=== PATIENT | female | born 1975 | race Caucasian/White ===

== ENCOUNTER 2016-11-23 07:00 | Day surgery (SDC) | payer OTHER ==
[~2016-11-23 07:00] MED LIST: Lactated Ringers 1,000 ML IV SCH; Lidocaine 1%/Sod Bicarbonate in NS 8.4% 1 ML Syringe PRN; Sodium Chloride 0.9% 10 ML Syringe FLUSH PRN
--- NOTE | 2016-11-23 07:45 | PCM.PREANE ---
Preanesthetic Assessment - Anesthesia/Transfusion/Family Hx Anesthesia History: Prior Anesthesia Without Reaction Family History of Anesthesia Reaction: No Transfusion History: No Prior Transfusion(s) - Review of Systems General: No Symptoms Pulmonary: No Symptoms Cardiovascular: No Symptoms Gastrointestinal: No Symptoms Neurological: No Symptoms Other: Reports: Thyroid Problems, Sinus Problem (seasonal allergies) - Physical Assessment NPO Status Date: 11/22/16 NPO Status Time: 17:30 O2 Sat by Pulse Oximetry: 97 Respiratory Rate: 16 Vital Signs: Last Vital Signs Temp 98.6 F 11/23/16 07:05 Pulse 91 11/23/16 07:05 Resp 16 11/23/16 07:05 BP 119/81 11/23/16 07:05 Pulse Ox 97 11/23/16 07:05 Height: 5 ft 8 in Weight: 86.183 kg ASA Class: 2 Mental Status: Alert & Oriented x3 Airway Class: Mallampati = 1 Dentition: Reports: Normal Dentition Thyro-Mental Finger Breadths: 3 Mouth Opening Finger Breadths: 3 ROM/Head Extension: Full Lungs: Clear to Auscultation, Normal Respiratory Effort Cardiovascular: Regular Rate, Regular Rhythm - Allergies Allergies/Adverse Reactions: Allergies Allergy/AdvReac Type Severity Reaction Status Date / Time No Known Allergies Allergy Verified 11/22/16 16:02 - Blood Blood Available: No - Acknowledgements Anesthesia Type Planned: MAC Pt an Appropriate Candidate for the Planned Anesthesia: Yes Alternatives and Risks of Anesthesia Discussed w Pt/Guardian: Yes Pt/Guardian Understands and Agrees with Anesthesia Plan: Yes PreAnesthesia Questionnaire HEENT History: Reports: Impaired Vision Cardiovascular History: Reports: None, Other (See Below) (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1) Respiratory History: Reports: None Gastrointestinal History: Reports: Other (See Below) Other Gastrointestinal History: Sonny stones [employer] History: Reports: Neurological History: Reports: None Psychiatric History: Reports: Depression, Other (See Below) Other Psychiatric History: irritability Endocrine/Metabolic History: Reports: Hypothyroidism Hematologic History: Reports: None Immunologic History: Reports: None Oncologic (Cancer) History: Reports: None Dermatologic History: Reports: None - Past Surgical History Head Surgeries/Procedures: Reports: None Cardiovascular Surgical History: Reports: None Respiratory Surgical History: Reports: None GI Surgical History: Reports: Cholecystectomy, Colonoscopy Female Surgical History: Reports: Breast Implant, Tubal Ligation, Other (See Below) Other Female Surgeries/Procedures: Sling placement Endocrine Surgical History: Reports: None Neurological Surgical History: Reports: None Oncologic Surgical History: Reports: None Dermatological Surgical History: Reports: None - SUBSTANCE USE Smoking Status *Q: Never Smoker Tobacco Use Within Last Twelve Months: No Second Hand Smoke Exposure: No Days Per Week of Alcohol Use: 0 (very seldom) Recreational Drug Use History: No - HOME MEDS Home Medications: Home Meds Levothyroxine [Synthroid] 50 mcg PO ACBREAKFAST 12/25/15 [History] Aspirin [Children's Aspirin] 81 mg PO DAILY 11/22/16 [History] Calcium Carbonate [Calcium] 600 mg PO DAILY 11/22/16 [History] Desogestrel-Ethinyl Estradiol [Desogen 28 Day Tablet] 1 tab PO DAILY 11/22/16 [ History] Escitalopram Oxalate [Escitalopram Oxalate] 10 mg PO DAILY 11/22/16 [History] Lactobacillus Combo No.11 [Probiotic] 1 cap PO DAILY 11/22/16 [History] Loratadine [Alavert] 10 mg PO DAILY 11/22/16 [History] Multivitamin [Poly-Vitamin] 1 tab PO DAILY 11/22/16 [History] Niacin [Niacin ER] 1,500 mg PO DAILY 11/22/16 [History] - CURRENT (IN HOUSE) MEDS Current Meds: Current Medications Lactated Ringer's (Ringers, Lactated) 1,000 mls @ 125 mls/hr IV ASDIRECTED DEREK Stop: 11/23/16 23:00 Last Admin: 11/23/16 07:16 Dose: 125 mls/hr Lidocaine/Sodium Bicarbonate (Buffered Lidocaine 1% In Ns 8.4%) 0.25 ml .XX ONETIME PRN PRN Reason: Prior to IV Start Stop: 11/23/16 18:00 Last Admin: 11/23/16 07:16 Dose: 0.25 ml Sodium Chloride (Saline Flush) 10 ml FLUSH ASDIRECTED PRN PRN Reason: Keep Vein Open Stop: 11/23/16 18:00
[2016-11-23] MEDS ORDERED: Lidocaine 1% 4 ML ONE (07:55)
[2016-11-23] MEDS ORDERED: Propofol 200 MG/20 ML SDV ONE ×3 (07:55→10:38)
[2016-11-23] MEDS ORDERED: fentaNYL 100 MCG/2 ML SDV ONE (07:56)
[2016-11-23] MEDS ORDERED: Midazolam 1 MG/ML 2 ML SDV ONE ×2 (07:56→09:41)
[2016-11-23] MEDS ORDERED: Lidocaine 1% with EPINEPHrine 1:100,000 20 ML MDV ONE (07:56)
[2016-11-23] MEDS ORDERED: Bupivacaine 0.5%/EPINEPHrine 1:200,000 50 ML MDV ONE (07:56)
[2016-11-23] MEDS ORDERED: Lidocaine 1% 30 ML SDV INJECT ONE (08:58)
[2016-11-23] MEDS ORDERED: ceFAZolin 1 GM Vial ONE (09:49)
[2016-11-23] MEDS ORDERED: Ondansetron 4 MG/2 ML SDV IVPUSH PRN (09:51)
--- NOTE | 2016-11-23 10:44 | PCM48HPAN ---
Post Anesthesia Note - EVALUATION WITHIN 48HRS OF ANESTHETIC Vital Signs in Normal Range: Yes Patient Participated in Evaluation: Yes Respiratory Function Stable: Yes Airway Patent: Yes Cardiovascular Function Stable: Yes Hydration Status Stable: Yes Pain Control Satisfactory: Yes Nausea and Vomiting Control Satisfactory: Yes Mental Status Recovered: Yes (denies pain. no complaints.)
[2016-11-23 11:36] VITALS: BP 104/63
--- NOTE | 2016-11-24 10:35 | US ---
Ultrasound-guided left breast localization Procedure was explained to the patient. Patient was prepped and draped in usual fashion. Skin and deep tissues were anesthetized with 1% lidocaine. Localization needle was placed through the lesion. Spring-hook guidewire then placed through the needle and needle removed. Final position of the spring-hook wire is through the left breast lesion. Impression: 1. Successful ultrasound-guided breast localization of previously noted breast mass. Diagnostic code #2
--- NOTE | 2016-11-25 09:03 | MY ---
Specimen radiograph: Single view of a specimen radiograph was obtained post biopsy. Spring hookwire is seen. Area of increased density believed to represent the nodule which contains the wire that was placed for localization. Impression: 1. Specimen radiograph felt to contained localized nodule. Diagnostic code #2
--- NOTE | 2016-11-28 13:46 | PCM.OPNOTE ---
- General Post-Op/Procedure Note Date of Surgery/Procedure: 11/23/16 Operative Procedure(s): Open left excisional breast biopsy after wire localization Findings: Approximately 1 cm in diameter cystic left breast mass Pre Op Diagnosis: Suspicious left breast mass Post-Op Diagnosis: Same Anesthesia Technique: Local, MAC, Moderate Sedation Primary Surgeon: Dewayne Lopez Pathology: Left breast mass and wire EBL in mLs: 5 Complications: None Condition: Good Free Text/Narrative:: After adequate IV sedation and analgesia was obtained with monitoring the patient's left breast was prepped and draped sterilely for the procedure. The wire which had been previously placed by radiology was cut with a wire lather. Local analgesia was given over the area of the left breast mass. A 15 blade was used to make a 3 centimeter incision. This incision was deepened with cautery using the wire as a guide to circumferentially excise a core of tissue around the wire down to the mass. The wire and mass was clearly identified and placed in a cup and sent to radiology for mammographic confirmation. There was a small bleeder which was controlled with a 3-0 Vicryl. I irrigated out the field and then controlled the rest of bleeding with spot cautery. I closed the skin with a running 5-0 Monocryl. Steri-Strips and gauze were used for the dressing. There were no procedural comp occasions. Radiology confirmed the mass lesion was obtained. I personally reviewed the mammogram myself and agreed.
== END 2016-11-23 11:20 | disposition home or self-care (01) ==
LOC: JD.SDS 07:00
PROVIDERS: ATTEND Surgery
DX: D24.2 Benign neoplasm of left breast (principal); E03.9 Hypothyroidism, unspecified; F32.9 Major depressive disorder, single episode, unspecified; Z79.82 Long term (current) use of aspirin; Z79.899 Other long term (current) drug therapy; Z98.890 Other specified postprocedural states; Z98.51 Tubal ligation status; Z72.0 Tobacco use
CPT/HCPCS: 19101; 19281; 76098; 76942; J0690; J2250; J2405; J3010; J7120; 00400; J2704